=== PATIENT | male | born 1970 | race Caucasian/White ===

== ENCOUNTER 2016-12-13 01:45 | Observation (INO) | payer OTHER ==
[2016-12-13] MEDS ORDERED: TYLENOL 325 MG PO STA (01:54)
--- NOTE | 2016-12-13 02:10 | ERPHSYRPT ---
- History of Present Illness Time Seen by Provider: 12/13/16 01:48 Source: patient, family, EMS Exam Limitations: no limitations Physician History: patient presents with 4 day hx of fever and cough; was sick prior to him; he also had some diarrhea and some N&V initially; generalized aches and pain; cough non-productive; no travel; no prior hx; smokes; nothing for fever for 24 hours Timing/Duration: today (worse), day(s) (4), gradual onset, worse Fever Severity: moderate Fever Therapy LOGGING SUPERVISOR: Acetaminophen Associated Symptoms: cough, muscle aches, nausea/vomiting International travel in last 2 weeks: No Allergies/Adverse Reactions: Penicillins Allergy (Severe, Verified 12/13/16 02:37) swelling throat, hives morphine Allergy (Intermediate, Verified 12/13/16 02:37) nausea and vomiting, severe headache codeine Allergy (Verified 12/13/16 02:38) Home Medications: Aspirin EC 325 mg [Ecotrin 325 MG] 325 mg PO DAILY 06/30/16 [History] Canagliflozin [Invokana] 300 mg PO DAILY 06/30/16 [History] Diclofenac Sodium 50 mg [Voltaren 50 mg] 50 mg PO BID 06/30/16 [History] Metoprolol Tartrate 50 mg [Lopressor 50 MG] 50 mg PO BID 06/30/16 [History ] Simvastatin [Zocor] 20 mg PO DAILY 06/30/16 [History] - Review of Systems Constitutional: Fever, Chills Eyes: No Symptoms Ears, Nose, & Throat: No Symptoms Respiratory: Cough, Wheezing, No Cyanosis, No Dyspnea Cardiac: No Chest Pain, No Palpitations, No Syncope Abdominal/Gastrointestinal: Nausea, Vomiting, Diarrhea, No Abdominal Pain, No Constipation Genitourinary Symptoms: Frequency, No Hematuria, No Incontinence, No Urgency Musculoskeletal: Myalgias, No Fall, No Injury, No Joint Pain Skin: No Symptoms Neurological: No Symptoms Psychological: No Symptoms Endocrine: No Symptoms Hematologic/Lymphatic: No Symptoms Immunological/Allergic: No Symptoms - Past Medical History Pertinent Past Medical History: Yes Neurological History: No Pertinent History ENT History: No Pertinent History Cardiac History: Congestive Heart Failure, High Cholesterol, Hypertension Respiratory History: Other Endocrine Medical History: Diabetes Type II Musculoskeletal History: Arthritis GI Medical History: Esophageal Disorder History: Other Psycho-Social History: No Pertinent History Other Medical History: smoker. 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 several tumors removed from stomach one from neck. periodontal cancer with teeth and some jaw bone extraction - Social History Smoking Status: Current every day smoker How long have you smoked: 40years Exposure to second hand smoke: No Alcohol Use: None Drug Use: none Significant Family History: diabetes, hypertension - Nursing Vital Signs Nursing Vital Signs: Initial Vital Signs Temperature 101.6 F Temperature Source Oral Pulse Rate 86 Respiratory Rate 16 Blood Pressure [] 100/78 Pain Intensity 2 - Physical Exam General Appearance: moderate distress (coughing paroxysm), alert, obese Eye Exam: PERRL/EOMI, eyes nml inspection, No photophobia ENT Exam: normal ENT inspection, no apparent trauma, hearing grossly normal, TMs normal, pharynx normal Neck Exam: normal inspection, non-tender, supple, full range of motion, No JVD, No Kernig's sign, No meningismus Respiratory Exam: decreased breath sounds, decreased air movement, rhonchi, wheezing, No normal breath sounds, No chest non-tender, No lungs clear, No no respiratory distress (m), No no accessory muscle use (ld tachypnea), No pleural rub, No splinting Cardiovascular/Chest Exam: normal heart sounds, regular rate/rhythm, normal peripheral pulses, No murmur, No edema, No JVD Gastrointestinal/Abdominal Exam: soft, non tender, no distention, no guarding, no organomegaly, normal bowel sounds Rectal Exam: deferred Extremity Exam: non-tender, normal range of motion, normal inspection, No no pedal edema, No ktaie's sign Neurologic Exam: alert, oriented x 3, cooperative, sales program manager II-XII nml as tested, normal mood/affect Skin Exam: normal color, warm, dry, No rash, No petechiae, No cyanosis Lymphatic: No adenopathy SpO2 Interpretation: normal SpO2: 97 Oxygen Delivery: Room Air - Course Nursing assessment & vital signs reviewed: Yes - Radiology Exams Chest X-ray Interpretation: Interpreted by me, No Pneumothorax, Nml Heart Size, Infiltrates (suspect early RLL infiltrate), Other (aging chest) Ordered Tests: Active Orders 24 hr Category Date Time Status Bedrest with BRP/BSC ROUTINE Activity 12/13/16 02:42 Active Admission/Status Order ROUTINE Care 12/13/16 02:43 Active Admission/Status Order ROUTINE Care 12/13/16 03:24 Ordered Code Status Order ROUTINE Care 12/13/16 02:43 Active Code Status Order ROUTINE Care 12/13/16 03:24 Ordered IV Care Q6H Care 12/13/16 02:43 Active IV Care Q6H Care 12/13/16 03:24 Ordered IV Insertion STAT Care 12/13/16 02:11 Active Pulse Oximetry (ED) STAT Care 12/13/16 01:54 Active Epi Hose, Apply ROUTINE Care 12/13/16 02:43 Active Weight,Daily 0600 Care 12/13/16 02:43 Active Regular Diet Diet 12/13/16 Breakfast Active CHEST 1 VIEW (PORTABLE) Stat Exams 12/13/16 02:00 Taken BLOOD CULTURE Stat Lab 12/13/16 02:07 Received BMP Stat Lab 12/13/16 01:58 Completed CBC W DIFF Stat Lab 12/13/16 01:58 Completed CULTURE, THROAT Stat Lab 12/13/16 01:55 Received Lactic Acid Urgent Lab 12/13/16 01:56 Completed Mobile Screen Stat Lab 12/13/16 01:58 Completed STREP SCREEN-BETA A Stat Lab 12/13/16 01:55 Completed UA W/ MICROSCOPIC Stat Lab 12/13/16 02:25 Completed Pulse Oximetry CONTINUOUS RT 12/13/16 02:45 Active Respiratory Nebulizer Q4H RT 12/13/16 02:42 Active Respiratory Nebulizer STAT RT 12/13/16 02:12 Completed Respiratory Therapy Consult ROUTINE RT 12/13/16 02:42 Active Transfer Order Routine Transfer 12/13/16 02:42 Ordered Medication Summary Generic Name Dose Route Start Last Admin Trade Name Freq PRN Reason Stop Dose Admin Albuterol/Ipratropium 3 ml 12/13/16 03:00 Duoneb 0.5-3 Mg/3 Ml Neb IH 01/12/17 02:59 Q4HRT LISA Sodium Chloride 1,000 mls @ 100 mls/hr 12/13/16 02:15 12/13/16 02:55 Sodium Chloride 0.9% 1000 Ml IV 01/12/17 02:14 100 mls/hr .Q10H LISA Administration Levofloxacin/Dextrose 150 mls @ 150 mls/hr 12/13/16 02:45 Levofloxacin 750mg/150ml D5w IV 01/12/17 02:44 Q24H LISA Levofloxacin/Dextrose 150 mls @ 100 mls/hr 12/13/16 02:51 12/13/16 03:12 Levofloxacin 750mg/150ml D5w IV 12/13/16 04:20 100 mls/hr STAT ONE Administration Methylprednisolone Sodium Succinate 80 mg 12/13/16 06:00 Solu-Medrol 125 Mg IV 01/12/17 05:59 Q6HT LISA Discontinued Medications Generic Name Dose Route Start Last Admin Trade Name Freq PRN Reason Stop Dose Admin Acetaminophen 975 mg 12/13/16 01:54 12/13/16 02:17 Tylenol 325 Mg PO 12/13/16 01:55 975 mg STAT STA Administration Acetaminophen Confirm 12/13/16 02:15 Tylenol 325 Mg Administered 12/13/16 02:16 Dose 975 mg .ROUTE .STK-MED ONE Acetaminophen Confirm 12/13/16 02:22 Tylenol 325 Mg Administered 12/13/16 02:23 Dose 325 mg .ROUTE .STK-MED ONE Albuterol/Ipratropium 3 ml 12/13/16 02:11 12/13/16 03:02 Duoneb 0.5-3 Mg/3 Ml Neb IH 12/13/16 02:12 3 ml STAT ONE Administration Sodium Chloride 250 mls @ 999 mls/hr 12/13/16 02:11 12/13/16 02:30 Sodium Chloride 0.9% 1000 Ml IV 12/13/16 02:26 999 mls/hr .Q16M STA Administration Ketorolac Tromethamine 30 mg 12/13/16 02:13 12/13/16 02:18 Toradol 30 Mg Injection IV 12/13/16 02:14 30 mg STAT ONE Administration Ketorolac Tromethamine Confirm 12/13/16 02:15 Toradol 30 Mg Injection Administered 12/13/16 02:16 Dose 30 mg .ROUTE .STK-MED ONE Lab/Rad Data: Laboratory Result Diagrams 12/13/16 01:58 12/13/16 01:58 Laboratory Results 12/13/16 12/13/16 12/13/16 Range/Units 02:25 01:58 01:58 WBC (4.0-10.5) K/mm3 RBC (4.1-5.6) M/mm3 Hgb (12.5-18.0) gm/dl Hct (42-50) % MCV (78-100) fl MCH (26-32) pg MCHC (32-36) g/dl RDW (11.5-14.0) % Plt Count (150-450) K/mm3 MPV (6-9.5) fl Gran % (36.0-66.0) % Lymphocytes % (24.0-44.0) % Monocytes % (0.0-12.0) % Eosinophils % (0.00-5.0) % Basophils % (0.0-0.4) % Basophils # (0-0.4) Sodium 136 (136-145) mEq/L Potassium 3.6 (3.5-5.1) mEq/L Chloride 104 (98-107) mEq/L Carbon Dioxide 22.3 (21-32) mEq/L Anion Gap 13.4 (5-15) MEQ/L BUN 13 (9-20) mg/dL Creatinine 1.31 H (0.55-1.30) mg/dl Estimated GFR > 60 ML/MIN Glucose 136 H (70-110) MG/DL Lactic Acid (0.4-2.0) Calcium 8.0 L (8.5-10.1) mg/dL Ur Collection Type CLEAN CATCH Urine Color YELLOW (YELLOW) Urine Appearance CLEAR (CLEAR) Urine pH 7.0 (5-6) Ur Specific [employer] 1.015 (1.005-1.025) Urine Protein NEGATIVE (Negative) Urine Glucose (UA) >=1000 (NEGATIVE) mg/dL Urine Ketones NEGATIVE (NEGATIVE) Urine Nitrite NEGATIVE (NEGATIVE) Urine Bilirubin NEGATIVE (NEGATIVE) Urine Urobilinogen 0.2 (0-1) mg/dL Urine WBC (Auto) NEGATIVE (NEGATIVE) Urine RBC (Auto) TRACE NON-HEM (0-5) [place]/ul Urine Microscopic RBC 0-2 (0-2) /HPF Ur Epithelial Cells RARE (FEW) /HPF Urine Bacteria RARE (NEGATIVE) /HPF Monoscreen NEGATIVE (Negative) Influenza Type A Ag (NEGATIVE) Influenza Type B Ag (NEGATIVE) RSV (PCR) (Negative) Streptococcus Screen (Negative) Specimen Received 12/13/16:0220 12/13/16 12/13/16 12/13/16 Range/Units 01:58 01:56 01:55 WBC 4.3 (4.0-10.5) K/mm3 RBC 4.88 (4.1-5.6) M/mm3 Hgb 14.9 (12.5-18.0) gm/dl Hct 44.2 (42-50) % MCV 90.6 (78-100) fl MCH 30.5 (26-32) pg MCHC 33.7 (32-36) g/dl RDW 13.7 (11.5-14.0) % Plt Count 191 (150-450) K/mm3 MPV 11.2 H (6-9.5) fl Gran % 56.2 (36.0-66.0) % Lymphocytes % 23.4 L (24.0-44.0) % Monocytes % 15.7 H (0.0-12.0) % Eosinophils % 3.3 (0.00-5.0) % Basophils % 1.4 (0.0-0.4) % Basophils # 0.06 (0-0.4) Sodium (136-145) mEq/L Potassium (3.5-5.1) mEq/L Chloride (98-107) mEq/L Carbon Dioxide (21-32) mEq/L Anion Gap (5-15) MEQ/L BUN (9-20) mg/dL Creatinine (0.55-1.30) mg/dl Estimated GFR ML/MIN Glucose (70-110) MG/DL Lactic Acid 1.9 (0.4-2.0) Calcium (8.5-10.1) mg/dL Ur Collection Type Urine Color (YELLOW) Urine Appearance (CLEAR) Urine pH (5-6) Ur Specific [employer] (1.005-1.025) Urine Protein (Negative) Urine Glucose (UA) (NEGATIVE) mg/dL Urine Ketones (NEGATIVE) Urine Nitrite (NEGATIVE) Urine Bilirubin (NEGATIVE) Urine Urobilinogen (0-1) mg/dL Urine WBC (Auto) (NEGATIVE) Urine RBC (Auto) (0-5) [place]/ul Urine Microscopic RBC (0-2) /HPF Ur Epithelial Cells (FEW) /HPF Urine Bacteria (NEGATIVE) /HPF Monoscreen (Negative) Influenza Type A Ag NEGATIVE (NEGATIVE) Influenza Type B Ag POSITIVE (NEGATIVE) RSV (PCR) NEGATIVE (Negative) Streptococcus Screen (Negative) Specimen Received 12/13/16 Range/Units 01:55 WBC (4.0-10.5) K/mm3 RBC (4.1-5.6) M/mm3 Hgb (12.5-18.0) gm/dl Hct (42-50) % MCV (78-100) fl MCH (26-32) pg MCHC (32-36) g/dl RDW (11.5-14.0) % Plt Count (150-450) K/mm3 MPV (6-9.5) fl Gran % (36.0-66.0) % Lymphocytes % (24.0-44.0) % Monocytes % (0.0-12.0) % Eosinophils % (0.00-5.0) % Basophils % (0.0-0.4) % Basophils # (0-0.4) Sodium (136-145) mEq/L Potassium (3.5-5.1) mEq/L Chloride (98-107) mEq/L Carbon Dioxide (21-32) mEq/L Anion Gap (5-15) MEQ/L BUN (9-20) mg/dL Creatinine (0.55-1.30) mg/dl Estimated GFR ML/MIN Glucose (70-110) MG/DL Lactic Acid (0.4-2.0) Calcium (8.5-10.1) mg/dL Ur Collection Type Urine Color (YELLOW) Urine Appearance (CLEAR) Urine pH (5-6) Ur Specific [employer] (1.005-1.025) Urine Protein (Negative) Urine Glucose (UA) (NEGATIVE) mg/dL Urine Ketones (NEGATIVE) Urine Nitrite (NEGATIVE) Urine Bilirubin (NEGATIVE) Urine Urobilinogen (0-1) mg/dL Urine WBC (Auto) (NEGATIVE) Urine RBC (Auto) (0-5) [employer]ul Urine Microscopic RBC (0-2) /HPF Ur Epithelial Cells (FEW) /HPF Urine Bacteria (NEGATIVE) /HPF Monoscreen (Negative) Influenza Type A Ag (NEGATIVE) Influenza Type B Ag (NEGATIVE) RSV (PCR) (Negative) Streptococcus Screen NEGATIVE (Negative) Specimen Received reviewed - Progress Progress: improved (after meds), re-examined (after meds) Progress Note: 12/13/16 02:37 rechecked; moving air better; no wheezing; some scattered rhonchi right base; VS improved; resting quietly; cough improved;p at [facility] Dr Burkett lead sales consultant consulted and will admit to obs CBC; Strep, Mobile all wnl or neg; lytes ok; BS up and Cr up slightly; Flu results pending; CXR suggestivce of early RLL infiltrate 12/13/16 03:[address] Burkett had beenb consulted and agreed to admit; influenza B positive; A neg; family informed Discussed with : Kwadwo (consulted and will admit) Will see patient in: hospital (observation) Counseled pt/family regarding: lab results, diagnosis, need for follow-up, rad results, smoking cessation - Departure Time of Disposition: 03:23 Departure Disposition: Observation Clinical Impression: FUO (fever of unknown origin), Influenza B Condition: Serious Critical Care Time: No Referrals: THELMA SMITH CORE SHAPER [Primary Care Provider] - JOEL BURKETT [ACTIVE STAFF] - Instructions: Fever (Symptom) -- Adult
[2016-12-13] MEDS ORDERED: DUONEB 0.5-3 MG/3 ml Neb IH ONE (02:11)
[2016-12-13] MEDS ORDERED: TORAdol 30 mg Injection IV ONE (02:13)
[2016-12-13 02:15] LABS: BASOPHIL % 1.4 % (0.0-0.4); Eosinophil % 3.3 % (0.00-5.0); Granulocytes % 56.2 % (36.0-66.0); Lymphocytes % 23.4 % (24.0-44.0); Mean Cell Volume 90.6 fl (78-100); Mean Corpuscular Hemoglobin 30.5 pg (26-32); Mean Platelet Volume 11.2 fl (6-9.5); Monocytes % 15.7 % (0.0-12.0); Platelet Count 191 K/mm3 (150-450); Red Blood Count 4.88 M/mm3 (4.1-5.6); Red Cell Distribution Width 13.7 % (11.5-14.0); White Blood Count 4.3 K/mm3 (4.0-10.5)
[2016-12-13] MEDS ORDERED: TYLENOL 325 MG ONE ×2 (02:15→02:22)
[2016-12-13] MEDS ORDERED: TORAdol 30 mg Injection ONE (02:15)
[2016-12-13 02:33] LABS: ANION GAP 13.4 MEQ/L (5-15); BLOOD UREA NITROGEN 13 mg/dL (9-20); CHLORIDE 104 mEq/L (98-107); Carbon Dioxide 22.3 mEq/L (21-32); Glucose 136 MG/DL (70-110); Potassium 3.6 mEq/L (3.5-5.1); SODIUM 136 mEq/L (136-145)
[2016-12-13] MEDS ORDERED: LEVOFLOXACIN 750MG/150ML D5W 150 ML IV SCH ×2 (02:45→22:00)
[2016-12-13 02:47] LABS: Collection Type CLEAN CATCH
[2016-12-13 02:48] LABS: Bacteria RARE /HPF (NEGATIVE); COMPLETE URINE MICROSCOPIC? YES; Epithelial Cells RARE /HPF (FEW)
[2016-12-13] MEDS ORDERED: LEVOFLOXACIN 750MG/150ML D5W 150 ML IV ONE ×2 (02:51→03:09)
[2016-12-13] MEDS: Sodium Chloride 0.9% 1000 ML 1,000 ML IV SCH ×3 (02:55→19:52)
[2016-12-13] MEDS ORDERED: TYLENOL 325 MG PO PRN (03:24)
[2016-12-13] MEDS: solu-MEDROL 125 MG IV SCH ×3 (05:04→17:20)
[2016-12-13] MEDS: Tamiflu 75MG Capsule PO SCH ×3 (05:05→22:34)
[2016-12-13] MEDS: DUONEB 0.5-3 MG/3 ml Neb IH SCH ×6 (06:49→23:21)
--- NOTE | 2016-12-13 08:27 | XRAY ---
Indication: Cough. Comparison: None Portable chest hyperinflated with a few calcified granulomas. No focal infiltrate, consolidation, or large effusion. Heart is not enlarged. Vascularity normal. Bony thorax intact. Impression: Nonacute hyperinflated chest.
[2016-12-13] MEDS ORDERED: Nicoderm CQ 21 MG TOP SCH (09:00)
[2016-12-13] MEDS ORDERED: Tamiflu 75MG Capsule PO SCH ×2 (10:00)
[2016-12-13] MEDS ORDERED: VOLTAREN 50 MG PO SCH (10:45)
[2016-12-13] MEDS ORDERED: Lopressor 50 MG PO SCH (10:45)
[2016-12-13] MEDS ORDERED: PATIENT OWN MEDICATION PO SCH (10:45)
[2016-12-13] MEDS ORDERED: Ecotrin 325 MG PO SCH (10:45)
[2016-12-13] MEDS ORDERED: ZOCOR 20MG PO SCH (12:00)
[2016-12-13] MEDS: NovoLOG Insulin SQ PRN ×3 (12:04→23:11)
[2016-12-14] MEDS: solu-MEDROL 125 MG IV SCH ×2 (00:55→06:09)
[2016-12-14] MEDS: DUONEB 0.5-3 MG/3 ml Neb IH SCH ×2 (03:16→06:47)
--- NOTE | 2016-12-14 06:26 | PCM.SSS ---
History of Present Illness - Chief Complaint Chief Complaint: fever unknown origin History of Present Illness: is a 46 year old male who presented with cough and fever, found to have +flu B. treated with tamiflu, still has cough but much improved. no fever in the last 24 hours, eating and drinking normally and would like to go home today. - Review of Systems Constitutional: Fever, Chills Respiratory: Cough Cardiac: No Chest Pain, No Edema, No Syncope Abdominal/Gastrointestinal: No Abdominal Pain, No Nausea, No Vomiting, No Diarrhea Genitourinary Symptoms: No Dysuria Skin: No Rash All Other Systems: Reviewed and Negative Medications & Allergies Home Medications: Home Medication List Aspirin EC 325 mg [Ecotrin 325 MG] 325 mg PO DAILY 06/30/16 [History Confirmed 12/13/16] Canagliflozin [Invokana] 300 mg PO DAILY 06/30/16 [History Confirmed 12/13/16] Diclofenac Sodium 50 mg [Voltaren 50 mg] 50 mg PO BID 06/30/16 [History Confirmed 12/13/16] Metoprolol Tartrate 50 mg [Lopressor 50 MG] 50 mg PO BID 06/30/16 [ History Confirmed 12/13/16] Simvastatin [Zocor] 20 mg PO DAILY 06/30/16 [History Confirmed 12/13/16] Oseltamivir 75 mg [Tamiflu 75MG Capsule] 75 mg PO BID #8 cap 12/14/16 [Rx] Allergies/Adverse Reactions: Allergies Allergy/AdvReac Type Severity Reaction Status Date / Time Penicillins Allergy Severe swelling Verified 12/13/16 02:37 throat, hives morphine Allergy Intermediate nausea and Verified 12/13/16 02:37 vomiting, severe headache codeine Allergy Verified 12/13/16 02:38 - Past Medical History Past Medical History: Yes Neurological History: No Pertinent History ENT History: No Pertinent History Cardiac History: Congestive Heart Failure, High Cholesterol, Hypertension Respiratory History: Other Endocrine Medical History: Diabetes Type II Musculoskelatal History: Arthritis GI Medical History: Esophageal Disorder History: Other Pyscho-Social History: No Pertinent History Male Reproductive Disorders: No Pertinent History Comment: smoker, 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 several tumors removed from stomach one from neck. periodontal cancer with teeth and some jaw bone extraction - Social History Smoking Status: Current every day smoker How long have you smoked: 08/31/1974 Exposure to second hand smoke: Yes Alcohol: None Drug Use: none Significant Family History: diabetes, hypertension - Physical Exam Vital Signs: Vital Signs - 24 hr Temp Pulse Resp BP Pulse Ox 12/14/16 04:00 20 12/14/16 03:50 97.9 F 67 20 145/68 96 12/14/16 03:16 69 20 92 L 12/14/16 00:00 97.7 F 82 18 152/63 95 12/13/16 23:22 82 18 95 12/13/16 20:00 98.2 F 82 17 178/77 95 12/13/16 19:51 82 17 95 12/13/16 16:25 97.9 F 87 87 H 142/61 94 L 12/13/16 14:59 79 20 95 12/13/16 12:00 20 12/13/16 11:26 81 20 96 12/13/16 11:13 98.6 F 82 20 144/66 93 L 12/13/16 08:00 21 12/13/16 06:55 78 21 94 L 12/13/16 06:46 99 F 80 22 118/55 96 General Appearance: no apparent distress, alert Eye Exam: PERRL/EOMI, eyes nml inspection Ears, Nose, Throat Exam: normal ENT inspection, TMs normal, pharynx normal, moist mucous membranes Respiratory Exam: normal breath sounds, lungs clear, No respiratory distress Cardiovascular Exam: regular rate/rhythm, normal heart sounds, normal peripheral pulses Gastrointestinal/Abdomen Exam: soft, normal bowel sounds, No tenderness, No mass Extremity Exam: normal inspection, normal range of motion, pelvis stable Results - Labs Lab/Micro Results: Accuchecks Date 12/13/16 Date 12/13/16 Date 12/13/16 Date 12/13/16 Time 22:00 Time 16:30 Time 11:30 Time 07:30 Accucheck Value: 240 Accucheck Value: 239 Accucheck Value: 282 Accucheck Value: 163 Accuchecks Date 12/13/16 Date 12/13/16 Date 12/13/1612/13/16 Time 22:00 Time 16:30 Time 11:30 Time 07:30 Accucheck Value: 240 Accucheck Value: 239 Accucheck Value: 282 Accucheck Value: 163 - Radiology Impressions Radiology Exams & Impressions: Radiology Procedures Category Date Time Status CHEST 2 VIEWS (PA AND LAT) Routine Exams 12/13/16 23:54 Ordered Assessment/Plan (1) Influenza B Current Visit: Yes Status: Acute Assessment & Plan: to complete a 5 day course of tamiflu, no other tx required at this time. was started on levaquin in ER for possible early infiltrate, cxr negative per radiology, looks clear to me and clinically no wheezing or rales on exam so no further abx or steroids seem to be warranted on discharge, I feel symptomatology is explained by +influenza B Code(s): J10.1 - FLU DUE TO OTH IDENT INFLUENZA VIRUS W OTH RESP [facility] Summary - Vitals & Intake/Output Vital Signs: Vital Signs Temperature 97.9 F 12/14/16 03:50 Pulse Rate 67 12/14/16 03:50 Respiratory Rate 20 12/14/16 04:00 Blood Pressure 145/68 12/14/16 03:50 O2 Sat by Pulse Oximetry 96 12/14/16 03:50 Intake & Output: Intake & Output 12/11/16 12/12/16 12/13/16 12/14/16 11:59 11:59 11:59 11:59 Intake Total 240 4911 Output Total 2 Balance 240 4909 Weight 125.69 kg - Lab Result Diagrams: 12/13/16 01:58 12/13/16 01:58 Lab Results-Last 24 Hrs: Accuchecks Date 12/13/16 Date 12/13/16 Date 12/13/16 Date 12/13/16 Time 22:00 Time 16:30 Time 11:30 Time 07:30 Accucheck Value: 240 Accucheck Value: 239 Accucheck Value: 282 Accucheck Value: 163 Micro Results-Entire Visit: Accuchecks Date 12/13/16 Date 12/13/1612/13/1612/13/16 Time 22:00 Time 16:30 Time 11:30 Time 07:30 Accucheck Value: 240 Accucheck Value: 239 Accucheck Value: 282 Accucheck Value: 163 - Radiology Exams Ordered Rad Exams-Entire Visit: Radiology Procedures Category Date Time Status CHEST 2 VIEWS (PA AND LAT) Routine Exams 12/13/16 23:54 Ordered - Procedures and Test Procedures and Tests throughout Hospitalization: Therapy Orders & Screens 12/13/16 02:42 Respiratory Nebulizer 0700,1100,1500,1900,2300,0300 Comment: Diagnosis: Shortness of Breath Respiratory Therapy Consult ROUTINE Comment: Reason For Exam: Diagnosis: Shortness of Breath 12/13/16 05:56 Smoking Cessation Education ONCE Comment: Diagnosis: fever unknown origin Smoking Status: Current every day smoker How long have you smoked: 08/31/1974 Have you smoked in the past 12 months: Yes Approximately how many cigarettes per day: 20 Do you dip or chew tobacco: No - Discharge Disposition: Home, Self-Care Condition: Good Prescriptions: New Oseltamivir 75 mg [Tamiflu 75MG Capsule] 75 mg PO BID #8 cap Continue Metoprolol Tartrate 50 mg [Lopressor 50 MG] 50 mg PO BID Canagliflozin [Invokana] 300 mg PO DAILY Diclofenac Sodium 50 mg [Voltaren 50 mg] 50 mg PO BID Aspirin EC 325 mg [Ecotrin 325 MG] 325 mg PO DAILY Simvastatin [Zocor] 20 mg PO DAILY Instructions: Fever (Symptom) -- Adult Follow up with: JOEL CORDON [ACTIVE STAFF] - THELMA SMITH MANAGER MECHANICAL MAINTENANCE [Primary Care Provider] -
[2016-12-14 08:16] VITALS: BP 144/67; PULSE 91; O2SAT 95
[2016-12-14] MEDS ORDERED: NON-FORMULARY ITEM (Canagliflozin [Invokana] 300 MG) PO SCH (10:00)
== END 2016-12-14 08:25 | disposition home or self-care (01) ==
LOC: ED 01:45 → MED SURG 03:37
PROVIDERS: ADMIT Family Medicine; ATTEND Family Medicine
DX: J10.1 Influenza due to other identified influenza virus with other respiratory manifestations (principal); I50.20 Unspecified systolic (congestive) heart failure; E78.00 Pure hypercholesterolemia, unspecified; I10 Essential (primary) hypertension; E11.9 Type 2 diabetes mellitus without complications; M19.90 Unspecified osteoarthritis, unspecified site; Z79.899 Other long term (current) drug therapy; Z90.5 Acquired absence of kidney; Z85.818 Personal history of malignant neoplasm of other sites of lip, oral cavity, and pharynx; Z72.0 Tobacco use
CPT/HCPCS: 36415; 71010; 80048; 81000; 82962; 83036; 83605; 85025; 86308; 87040; 87070; 87430; 87631; 94640; 94760; 96360; 96361; 96365; 99285; G0378; J1885; J1956; J2930; A9270-GY

== ENCOUNTER 2018-05-24 07:25 | Emergency (ER) | payer OTHER ==
[2018-05-24] MEDS ORDERED: BABY ASPIRIN 81 MG CHEW PO ONE (07:57)
--- NOTE | 2018-05-24 08:05 | ERPHSYRPT ---
- History of Present Illness Time Seen by Provider: 05/24/18 07:46 Source: patient Exam Limitations: no limitations Patient Subjective Stated Complaint: Pt states "I have been congested for the past 3 weeks, but last night I had a horrible chest pain and I have been having a hard time breathing." Triage Nursing Assessment: Pt alert and oriented X 3, skin pwd. Pt ambulates iwth an upright steady gait, able to speak in clear full sentences. PT in no apparent respiratory distress. pt has intermittant cough, moans and groans when he moves. Physician History: 47-year-old white male with history of hypercholesterolemia, congestive heart failure, high blood pressure, diabetes type 2, chronic back pain degenerative disc disease. Patient arrives with complaint of a cough productive of white sputum for approximately 3 weeks associated with shortness of breath. States he feels congested and short of breath in the morning and at night states this tends to clear in the mornings after he gets moving around. He has not had a fever no nausea no vomiting. He states that last night at around midnight he had pain in his a left chest described as sharp he felt like he was having difficulty breathing he is not sure how long this lasted he apparently went to sleep with the pain woke up this morning aching all over across his chest left lateral chest. He is not short of breath at this time he states he is not wheezing. Past medical history includes hypercholesterolemia, congestive heart failure, high blood pressure, diabetes, arthritis, esophageal disorder, patient had a kidney removed at 5 days old. Patient with history of chronic back pain he states he has ruptured disc he states he has a history of fractures of his vertebral column in the past he states he has seen Dr. Ritchie and has been prescribed [place] and a medication that begins within S in the past but he will not take this medicine. His old chart shows that he has a history of cardiac stent however he states that he had had a cardiac catheterization and was told by his welding machine operator thermit that he had normal cardiac arteries and had a heart of a 25-year-old. Past surgical history includes cardiac catheterization, kidney removed at 5 days old. Several tumors removed around his stomach one from his neck. Peridontal cancer with removal of teeth and some of his jaw bone removed. Social history patient continues to smoke Timing/Duration: week(s) (short of breath cough productive of white sputum for 3 weeks, chest pain sharp unknown duration last night at midnight now aching anterior chest) Severity: moderate Modifying Factors: Improves With: nothing Associated Symptoms: shortness of breath, cough, chest pain, syncope (patient thinks he might have passed out from pain last night around midnight, the patient's thinks he just went to sleep), No nausea, No vomiting, No abdominal pain, No heartburn, No diaphoresis, No chills, No fever, No headaches , No loss of appetite, No malaise, No rash, No seizure, No weakness Allergies/Adverse Reactions: Penicillins Allergy (Severe, Verified 12/13/16 02:37) swelling throat, hives morphine Allergy (Intermediate, Verified 12/13/16 02:37) nausea and vomiting, severe headache codeine Allergy (Verified 12/13/16 02:38) Home Medications: Aspirin EC 325 mg [Ecotrin 325 MG] 325 mg PO DAILY 06/30/16 [History] Canagliflozin [Invokana] 300 mg PO DAILY 06/30/16 [History] Diclofenac Sodium 50 mg [Voltaren 50 mg] 50 mg PO BID 06/30/16 [History] Metoprolol Tartrate 50 mg [Lopressor 50 MG] 50 mg PO BID 06/30/16 [History ] Simvastatin [Zocor] 20 mg PO DAILY 06/30/16 [History] Hx Tetanus, Diphtheria Vaccination/Date Given: No Hx Influenza Vaccination/Date Given: No Hx Pneumococcal Vaccination/Date Given: No Immunizations Up to Date: Yes - Review of Systems Constitutional: No Fever, No Chills Eyes: No Symptoms Ears, Nose, & Throat: No Symptoms Respiratory: Cough, Dyspnea, No Dyspnea on Exertion (BLAKELY), No Stridor, No Wheezing Cardiac: Chest Pain, No Edema, No Palpitations, No Syncope, No Orthopnea, No PND Abdominal/Gastrointestinal: No Abdominal Pain, No Nausea, No Vomiting, No Diarrhea Genitourinary Symptoms: No Dysuria Musculoskeletal: No Back Pain, No Neck Pain Skin: No Rash Neurological: No Dizziness, No Focal Weakness, No Sensory Changes Psychological: No Symptoms Endocrine: No Symptoms All Other Systems: Reviewed and Negative - Past Medical History Pertinent Past Medical History: Yes Neurological History: Migraines ENT History: No Pertinent History Cardiac History: No Pertinent History, Hypertension Respiratory History: No Pertinent History Endocrine Medical History: Adrenal Insufficiency, Hypoglycemia Musculoskeletal History: Arthritis GI Medical History: Esophageal Disorder History: Other Psycho-Social History: No Pertinent History Male Reproductive Disorders: No Pertinent History Other Medical History: 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 - Past Surgical History Past Surgical History: Yes Neuro Surgical History: No Pertinent History Cardiac: Cardiac Stent Respiratory: No Pertinent History Gastrointestinal: Other Genitourinary: Other Musculoskeletal: No Pertinent History Male Surgical History: No Pertinent History Other Surgical History: kidney removed at 5 days old. several tumors removed from stomach one from neck. periodontal cancer with teeth and some jaw bone extraction - Social History Smoking Status: Current every day smoker How long have you smoked: 42 years Exposure to second hand smoke: Yes Alcohol Use: None Drug Use: none Patient Lives Alone: No Significant Family History: diabetes, hypertension - Nursing Vital Signs Nursing Vital Signs: Initial Vital Signs Temperature 99.2 F 05/24/18 07:31 Pulse Rate 86 05/24/18 07:31 Respiratory Rate 20 05/24/18 07:31 Blood Pressure 155/95 05/24/18 07:31 O2 Sat by Pulse Oximetry 97 05/24/18 07:31 Pain Scale Pain Intensity 5 - Physical Exam General Appearance: no apparent distress, alert Eye Exam: PERRL/EOMI, eyes nml inspection Ears, Nose, Throat Exam: normal ENT inspection, TMs normal, pharynx normal, moist mucous membranes Neck Exam: normal inspection, non-tender, supple, full range of motion Respiratory Exam: normal breath sounds, lungs clear, No respiratory distress Cardiovascular Exam: regular rate/rhythm, normal heart sounds, normal peripheral pulses, capillary refill <2 sec Gastrointestinal/Abdomen Exam: soft, normal bowel sounds, No tenderness, No mass Back Exam: normal inspection, normal range of motion, No CVA tenderness, No vertebral tenderness Extremity Exam: normal inspection, normal range of motion, pelvis stable Neurologic Exam: alert, oriented x 3, cooperative, surgery scheduling coordinator II-XII nml as tested, normal mood/affect, nml cerebellar function, nml station & gait, sensation nml, No motor deficits Skin Exam: pale Lymphatic Exam: No adenopathy SpO2 Interpretation: normal (97%) SpO2: 97 Oxygen Delivery: Room Air - Course Nursing assessment & vital signs reviewed: Yes EKG Interpreted by Me: RATE (72 bpm), NORMAL AXIS, Other (EKG: Sinus arrhythmia , 72 bpm, normal axis, no acute ST or T wave changes, essentially normal EKG) - Radiology Exams Chest X-ray Interpretation: Discussed w/ radiologist (stable non acute chest with chronic features) Ordered Tests: Active Orders 24 hr Category Date Time Status Accucheck STAT Care 05/24/18 07:58 Active Event Decorator And Designer STAT Care 05/24/18 07:57 Active EKG-ER Only STAT Care 05/24/18 07:57 Active IV Insertion STAT Care 05/24/18 07:57 Active Pulse Oximetry (ED) STAT Care 05/24/18 07:57 Active CHEST 1 VIEW (PORTABLE) Stat Exams 05/24/18 07:57 Completed CBC W DIFF Stat Lab 05/24/18 07:57 Completed CMP Stat Lab 05/24/18 07:57 Completed D-DIMER QUANTITATION Stat Lab 05/24/18 07:57 Completed NT PRO BNP Stat Lab 05/24/18 07:57 Completed PROTIME WITH INR Stat Lab 05/24/18 07:57 Completed PTT Stat Lab 05/24/18 07:57 Completed TROPONIN Q3H Lab 05/24/18 08:00 Completed TROPONIN Q3H Lab 05/24/18 10:52 Completed TROPONIN Q3H Lab 05/24/18 14:00 Ordered TROPONIN Q3H Lab 05/24/18 17:00 Ordered TROPONIN Q3H Lab 05/24/18 20:00 Ordered VENOUS BLOOD GAS Urgent Lab 05/24/18 08:20 Completed Peak Expiratory Flow Rate ONCE RT 05/24/18 09:00 Active Respiratory Nebulizer STAT RT 05/24/18 08:47 Completed Respiratory Therapy Assessment DAILY RT 05/24/18 09:00 Active Medication Summary Discontinued Medications Generic Name Dose Route Start Last Admin Trade Name Freq PRN Reason Stop Dose Admin Albuterol/Ipratropium 3 ml 05/24/18 08:47 05/24/18 08:57 Duoneb 0.5-3 Mg/3 Ml Neb IH 05/24/18 08:48 3 ml STAT ONE Administration Albuterol/Ipratropium Confirm 05/24/18 08:56 Duoneb 0.5-3 Mg/3 Ml Neb Administered 05/24/18 08:57 Dose 3 ml IH .STK-MED ONE Aspirin 324 mg 05/24/18 07:57 05/24/18 08:07 Baby Aspirin 81 Mg Chew PO 05/24/18 07:58 324 mg STAT ONE Administration Aspirin Confirm 05/24/18 08:08 Baby Aspirin 81 Mg Chew Administered 05/24/18 08:09 Dose 324 mg .ROUTE .STK-MED ONE Lab/Rad Data: Laboratory Result Diagrams 05/24/18 07:57 05/24/18 07:57 Laboratory Results 05/24/18 05/24/18 05/24/18 Range/Units 10:52 08:20 08:00 WBC (4.0-10.5) K/mm3 RBC (4.1-5.6) M/mm3 Hgb (12.5-18.0) gm/dl Hct (42-50) % MCV (78-100) fl MCH (26-32) pg MCHC (32-36) g/dl RDW (11.5-14.0) % Plt Count (150-450) K/mm3 MPV (6-9.5) fl Gran % (36.0-66.0) % Eos # (Auto) (0-0.5) Absolute Lymphs (auto) (1.0-4.6) Absolute Monos (auto) (0.0-1.3) Lymphocytes % (24.0-44.0) % Monocytes % (0.0-12.0) % Eosinophils % (0.00-5.0) % Basophils % (0.0-0.4) % Absolute Granulocytes (1.4-6.9) Basophils # (0-0.4) PT (8.83-12.87) SECONDS INR (0.8-3.0) APTT (24.1-36.1) SECONDS D-Dimer (215-500) ng/mL pO2/FiO2 Ratio 21.0 % VBG pH 7.40 (7.32-7.42) VBG pCO2 at Pat Temp 46 (42-55) mm/Hg VBG pO2 at Pat Temp 30 (25-40) mm/Hg VBG HCO3 28.5 H (22-28) meq/L VBG O2 Sat (Nhan) 66.7 L (95-100) VBG Base Excess 2.8 H (-2.0-2.0) VBG Hemoglobin 16.7 VBG Carboxyhemoglobin 4.8 (0.0-6.9) % T HGB POC Potassium 4.2 (3.5-5.1) Sodium (137-145) mmol/L Potassium (3.5-5.1) mmol/L Chloride (98-107) mmol/L Carbon Dioxide (22-30) mmol/L Anion Gap (5-15) MEQ/L BUN (9-20) mg/dL Creatinine (0.66-1.25) mg/dL Estimated GFR ML/MIN Glucose (74-106) mg/dL Calcium (8.4-10.2) mg/dL Total Bilirubin (0.2-1.3) mg/dL AST (17-59) U/L ALT (0-50) U/L Alkaline Phosphatase (38-126) U/L Troponin I < 0.012 < 0.012 (0.000-0.034) ng/mL NT-Pro-B Natriuret Pep (0-450) pg/mL Serum Total Protein (6.3-8.2) g/dL Albumin (3.5-5.0) g/dL 05/24/18 05/24/18 05/24/18 Range/Units 07:57 07:57 07:57 WBC 5.8 (4.0-10.5) K/mm3 RBC 5.52 (4.1-5.6) M/mm3 Hgb 17.1 (12.5-18.0) gm/dl Hct 49.7 (42-50) % MCV 90.0 (78-100) fl MCH 31.0 (26-32) pg MCHC 34.4 (32-36) g/dl RDW 13.6 (11.5-14.0) % Plt Count 258 (150-450) K/mm3 MPV 11.3 H (6-9.5) fl Gran % 53.6 (36.0-66.0) % Eos # (Auto) 0.19 (0-0.5) Absolute Lymphs (auto) 1.82 (1.0-4.6) Absolute Monos (auto) 0.64 (0.0-1.3) Lymphocytes % 31.4 (24.0-44.0) % Monocytes % 11.0 (0.0-12.0) % Eosinophils % 3.3 (0.00-5.0) % Basophils % 0.7 (0.0-0.4) % Absolute Granulocytes 3.11 (1.4-6.9) Basophils # 0.04 (0-0.4) PT 11.0 (8.83-12.87) SECONDS INR 0.95 (0.8-3.0) APTT 27.6 (24.1-36.1) SECONDS D-Dimer < 215 L (215-500) ng/mL pO2/FiO2 Ratio % VBG pH (7.32-7.42) VBG pCO2 at Pat Temp (42-55) mm/Hg VBG pO2 at Pat Temp (25-40) mm/Hg VBG HCO3 (22-28) meq/L VBG O2 Sat (Nhan) (95-100) VBG Base Excess (-2.0-2.0) VBG Hemoglobin VBG Carboxyhemoglobin (0.0-6.9) % T HGB POC Potassium (3.5-5.1) Sodium 142 (137-145) mmol/L Potassium 4.1 (3.5-5.1) mmol/L Chloride 106 (98-107) mmol/L Carbon Dioxide 27 (22-30) mmol/L Anion Gap 13.8 (5-15) MEQ/L BUN 12 (9-20) mg/dL Creatinine 0.91 (0.66-1.25) mg/dL Estimated GFR > 60.0 ML/MIN Glucose 140 H (74-106) mg/dL Calcium 9.4 (8.4-10.2) mg/dL Total Bilirubin 0.50 (0.2-1.3) mg/dL AST 18 (17-59) U/L ALT 20 (0-50) U/L Alkaline Phosphatase 62 (38-126) U/L Troponin I (0.000-0.034) ng/mL NT-Pro-B Natriuret Pep 37.0 (0-450) pg/mL Serum Total Protein 7.3 (6.3-8.2) g/dL Albumin 4.4 (3.5-5.0) g/dL - Progress Progress: improved Progress Note: 05/24/18 08:08 This is a 47-year-old white male with history of hypercholesterolemia, congestive heart failure, high blood pressure, diabetes, arthritis, esophageal disorder. He arrives with complaint of pain in his left chest described as sharp worse with breathing symptoms last night at midnight. He states today he woke up with aching across his chest. He states he has been having shortness of breath coughing white sputum for 3 weeks he feels like he is congested at night and perhaps is retaining fluids he states this clears when he gets up and moves around in the morning. Patient's old chart showed that he had a history of a cardiac stents however patient states that he had a cardiac catheterization and was told by his welding machine operator thermit that he had normal coronary arteries and that he had a heart of a 25-year-old. He does have a history of chronic pain he states he does not take his pain medications as prescribed by Dr. Ritchie he states that the last time these were prescribed were about a year ago however he does not want to get hooked on any medications and so he doesn't take any of them. Patient also states that he has history of diabetes however at the time of the diagnosis he had a high sugar intake and he is stop this and now he has been having normal blood sugars in a reasonable A1c he states this is checked every 3 months by his family doctor. Patient does not appear to be in acute distress at this time will give patient aspirin 324 mg orally he has not taken his daily aspirin yet. Will go ahead and obtain appropriate laboratory data x-rays. EKG at this time shows a normal EKG sinus arrhythmia, 72 bpm, normal axis, no acute ST or T wave changes. 05/24/18 08:48 Patient's chest x-ray, EKG, troponin, BNP, CMP all normal patient with mild increased hemoglobin of 17 (patient smokes). Patient states he really doesn't feel much different than when he came in patient does not appear to be in acute distress. Will go ahead and offer the patient DuoNeb treatment he feels like he is congested. 05/24/18 09:05 Will plan to repeat patient's troponin 3 hours after last draw. 05/24/18 11:55 Repeat troponin within normal limits. Patient does feel like he is better after DuoNeb treatment. Patient has been coughing up white sputum and has been short of breath for 2-3 weeks Will go ahead and write for albuterol inhaler and Zithromax. Patient will be released he is to follow-up with his family doctor. - Departure Time of Disposition: 11:56 Departure Disposition: Home Clinical Impression: Shortness of breath, Bronchitis with bronchospasm, Non-cardiac chest pain Condition: Fair Critical Care Time: No Referrals: THELMA SMITH, [employer]INEER[employer] OFFICER [Primary Care Provider] - Additional Instructions: Return home. Plenty of fluids. Zithromax Z-Saúl as directed. Albuterol inhaler 2 puffs every 4-6 hours as needed. Prednisone 20 mg 2 orally daily for 5 days., Follow-up with your family doctor. Return for acute distress or for severe symptoms. stop smoking tylenol every 4 hours as needed for pain. Prescriptions: Albuterol Common Canister [Proventil Common Canister] 2 puff IH Q4-6HPRN PRN #1 canister PRN Reason: shortness of breath wheezing Azithromycin 250 mg [Zithromax 250 MG TABLET] 0 mg PO ZPACK #6 tablet
[2018-05-24] MEDS ORDERED: BABY ASPIRIN 81 MG CHEW ONE (08:08)
[2018-05-24 08:09] LABS: BASOPHIL % 0.7 % (0.0-0.4); Basophil (Absolute #) 0.04 (0-0.4); Eosinophil % 3.3 % (0.00-5.0); Eosinophil (Absolute #) 0.19 (0-0.5); Granulocyte Absolute (ANC) 3.11 (1.4-6.9); Granulocytes % 53.6 % (36.0-66.0); Hematocrit 49.7 % (42-50); Hemoglobin 17.1 gm/dl (12.5-18.0); Lymphocyte (Absolute #) 1.82 (1.0-4.6); Lymphocytes % 31.4 % (24.0-44.0); Mean Corpuscular Hgb Concent. 34.4 g/dl (32-36); Mean Platelet Volume 11.3 fl (6-9.5); Monocyte (Absolute #) 0.64 (0.0-1.3); Platelet Count 258 K/mm3 (150-450); Red Blood Count 5.52 M/mm3 (4.1-5.6); Red Cell Distribution Width 13.6 % (11.5-14.0); White Blood Count 5.8 K/mm3 (4.0-10.5)
[2018-05-24 08:20] LABS: INR 0.95 (0.8-3.0)
[2018-05-24 08:21] LABS: VBG BASE EXCESS 2.8 (-2.0-2.0); VBG CARBOXYHEMOGLOBIN 4.8 % T HGB (0.0-6.9); VBG HCO3- 28.5 meq/L (22-28); VBG HEMOGLOBIN 16.7; VBG O2 SATURATION 66.7 (95-100); VBG POTASSIUM 4.2 (3.5-5.1); VBG pH 7.4 (7.32-7.42)
[2018-05-24 08:22] LABS: PTT 27.6 SECONDS (24.1-36.1)
[2018-05-24 08:30] LABS: D-DIMER QUANTITATION < 215 ng/mL (215-500)
[2018-05-24 08:33] LABS: ALBUMIN 4.4 g/dL (3.5-5.0); ALKALINE PHOSPHATASE 62 U/L (38-126); ANION GAP 13.8 MEQ/L (5-15); BLOOD UREA NITROGEN 12 mg/dL (9-20); CHLORIDE 106 mmol/L (98-107); Calcium 9.4 mg/dL (8.4-10.2); Carbon Dioxide 27 mmol/L (22-30); Creatinine 1 0.91 mg/dL (0.66-1.25); Glucose 140 mg/dL (74-106); Potassium 4.1 mmol/L (3.5-5.1); SGOT/AST 18 U/L (17-59); SGPT/ALT 20 U/L (0-50); SODIUM 142 mmol/L (137-145); Total Protein 7.3 g/dL (6.3-8.2)
--- NOTE | 2018-05-24 08:37 | XRAY ---
Indication: Chest pain and short of breath. Comparison: December 13, 2016. Portable chest remains hyperinflated and clear again with a few incidental calcified granulomas. Heart and mediastinal structures within normal limits. Bony thorax intact again with mild degenerative changes. Impression: Stable nonacute chest with chronic features.
[2018-05-24] MEDS ORDERED: DUONEB 0.5-3 MG/3 ml Neb IH ONE ×2 (08:47→08:56)
[2018-05-24 11:52] VITALS: O2SAT 97
[2018-05-24 12:20] VITALS: BP 138/74; PULSE 72
== END 2018-05-24 12:20 | disposition home or self-care (01) ==
LOC: ED 07:25
DX: J40 Bronchitis, not specified as acute or chronic (principal); J98.01 Acute bronchospasm; R07.89 Other chest pain; Z79.82 Long term (current) use of aspirin; Z79.899 Other long term (current) drug therapy
CPT/HCPCS: 36000; 36415; 71045; 80053; 82805; 82962; 83880; 84484; 85025; 85379; 85610; 85730; 93005; 93041; 94150; 94640; 99284; A9270-GY